=== PATIENT | female | born 1990 ===

== ENCOUNTER 2020-03-19 18:57 | Observation (INO) | payer SELFPAY ==
[~2020-03-19] VITALS: Ht 165.1 cm; Wt 78.3 kg
[2020-03-19 19:30] LABS: COLLECTION METHOD CLEAN CATCH
[2020-03-19 19:34] LABS: BASO # 0.1 (0.0-0.2); BASO % 0.6 % (0.0-2.0); EOS # 0.1 (0.0-0.7); EOS % 0.6 % (0-4.0); GRAN # 5.2 (1.4-6.5); GRAN % 62.5 % (42.2-75.2); HEMATOCRIT 38.2 % (37.0-47.0); HEMOGLOBIN 12.8 g/dl (12.5-16.0); LYMPH # 2.4 (1.2-3.4); LYMPH % 28.9 % (20.0-51.0); MEAN CELL VOLUME 79 fl (80.0-100.0); MEAN CORPUSCULAR HEMOGLOBIN 27 pg (27.0-31.0); MEAN CORPUSCULAR HGB CONC 34 g/dl (33.0-37.0); MEAN PLATELET VOLUME 11.2 fl (7.4-10.4); MONO # 0.6 (0.1-0.6); MONO % 7.2 % (1.7-9.3); PLATELET COUNT 273 K/mm3 (130-400); RED BLOOD COUNT 4.81 M/mm3 (4.10-5.30); REDCELL DISTRIBUTION WIDTH-CV 13.2 % (11.5-14.5)
[2020-03-19 19:35] LABS: MUCOUS Present /lpf; PH 7 (5-8); SQUAMOUS EPITHELIAL None Seen /hpf; URINE APPEARANCE Clear; URINE BACTERIA None Seen /hpf; URINE BILIRUBIN Negative (NEGATIVE); URINE BLOOD Negative (NEGATIVE); URINE COLOR Yellow; URINE GLUCOSE Negative (NEGATIVE); URINE KETONE 1+ (NEGATIVE); URINE LEUKOCYTE ESTERASE Negative (NEGATIVE); URINE NITRATE Negative (NEGATIVE); URINE PROTEIN(semi-quant) Negative (NEGATIVE); URINE RBC 0-2 /hpf
[2020-03-19 19:46] LABS: ALBUMIN 4.5 gm/dL (3.5-5.0); BILIRUBIN,TOTAL 0.4 mg/dL (0.0-1.0); C-REACTIVE PROTEIN 0.9 mg/dL (0.0-0.9); CALCIUM 9.4 mg/dL (8.4-10.2); CREATININE, serum 0.76 (0.52-1.25); POTASSIUM 3.2 mmol/L (3.4-5.0)
--- NOTE | 2020-03-19 22:45 | NUR ---
PT ADMITTED FROM E.D. WITH APPENDICITIS. I.V. FLUIDS INFUSING. PT TO BE NPO AT [facility]. SEE 5 PAGE ASSESSMENT.
[2020-03-20] VITALS (13 sets, daily range): BP systolic 97–121; BP diastolic 54–69; PULSE 61–69; TEMP 97.7–98.6
--- NOTE | 2020-03-20 08:32 | NUR ---
Consent for appendectomy signed.
--- NOTE | 2020-03-20 10:00 | NUR ---
Patient alert and oriented, answers questions appropriately. See assessment. Abdomen soft, non tender, non distended. Bowel sounds active x4 quads. +Flatus. No c/o at this time.
--- NOTE | 2020-03-20 11:38 | NUR ---
Patient to surgery with surgical staff at 1120.
[2020-03-20] MEDS ORDERED: ULTRAM 50MG TAB50 MG PO (12:12)
--- NOTE | 2020-03-20 12:22 | NUR ---
First visit from the associate entertainment editor. No needs right now.
--- NOTE | 2020-03-20 16:59 | NUR ---
Discharge instructions reviewed with patient, verbalized understanding. Discharged ambulatory to auto/home with family at [id number].
== END 2020-03-20 16:55 | disposition home or self-care (01) ==
LOC: COL.ER 18:57 → SURG 21:10
PROVIDERS: Family Medicine; ADMIT Surgery
DX: K35.80 Unspecified acute appendicitis (principal); F17.210 Nicotine dependence, cigarettes, uncomplicated; Z91.040 Latex allergy status
CPT/HCPCS: G0378; J0690; J1100; J1170; J1885; J2405; J2543; J2704; J3010; J7120; Q9967